=== PATIENT | female | born 1950 | race Caucasian/White ===

== ENCOUNTER 2024-12-10 09:43 | Inpatient (IN) ==
[2024-12-10] MEDS: fentaNYL 100 MCG/2 ML VIAL IV ONE (10:41)
[2024-12-10] MEDS: 0.9 % SODIUM CHLORIDE 1,000 ML IV ONE (10:41)
[2024-12-10 11:10] LABS: Basophils # (Auto) 0.01 K/mcL (0.00-0.30); Basophils % (Auto) 0.1 % (0.0-2.0); Eosinophils # (Auto) 0 K/mcL (0.00-0.70); Eosinophils % (Auto) 0 % (0.0-7.0); Hematocrit 35.4 % (34.1-44.9); Hemoglobin 12.1 g/dL (11.2-15.7); Lymphocytes # (Auto) 1.33 K/mcL (1.50-4.80); Lymphocytes % (Auto) 18.7 % (15.5-49.0); Mean Corpuscular HGB Conc 34.2 g/dL (31.0-36.0); Monocytes # (Auto) 0.49 K/mcL (0.10-0.90); Monocytes % (Auto) 6.9 % (1.0-12.0); Neutrophils % (Auto) 73.3 % (38.0-78.0); Platelet Count 192 K/mcL (140-440); RBC 4.19 M/mcL (3.59-5.38); WBC 7.1 K/mcL (4.5-11.0)
[2024-12-10 11:43] LABS: INR 1.1 (0.9-1.1); Prothrombin Time 14.9 sec (11.9-14.5)
[2024-12-10 12:01] LABS: ALT/SGPT 6 U/L (<40); AST/SGOT 10 U/L (<32); Albumin 3.2 gm/dL (3.2-5.2); Albumin/Globulin Ratio 1.5 (1.0-2.3); Alkaline Phosphatase 82 U/L (39-117); Anion Gap 11.0 (8.0-16.0); Bilirubin,Total 0.4 mg/dL (0.1-1.0); Blood Urea Nitrogen 31 mg/dL (8-23); Calcium 8.2 mg/dL (8.6-10.4); Carbon Dioxide 23 mmol/L (22-30); Chloride 101 mmol/L (96-108); Globulin 2.1 gm/dL (2.2-3.7); Glucose 102 mg/dL (70-105); Potassium 3.1 mmol/L (3.3-5.1); Sodium 135 mmol/L (133-145)
[2024-12-10] MEDS ORDERED: ACETAMINOPHEN 325 MG TABLET PO PRN (12:31)
[2024-12-10] MEDS ORDERED: SENNOSIDES 1 TABLET PO PRN (12:31)
[2024-12-10] MEDS ORDERED: POTASSIUM CHLORIDE 40 MEQ in DEXTROSE 5% IN WATER 500 ML IV PRN (12:31)
[2024-12-10] MEDS ORDERED: POTASSIUM CHLORIDE 20 MEQ TABLET PO PRN (12:31)
[2024-12-10] MEDS ORDERED: IPRATROPIUM/ALBUTEROL 3 ML AMPUL.NEB NEB PRN (12:31)
[2024-12-10] MEDS ORDERED: ONDANSETRON 4 MG/2 ML VIAL IV PRN (12:31)
[2024-12-10] MEDS ORDERED: METOCLOPRAMIDE 10 MG/2 ML VIAL IV PRN (12:31)
[2024-12-10] MEDS ORDERED: POLYETHYLENE GLYCOL 3350 17 GM PACKET PO PRN (12:31)
[2024-12-10 12:47] LABS: Bilirubin,Urine Negative (Negative); Color,Urine YELLOW; Glucose,Urine (UA) Negative (Negative); Ketones,Urine Negative (Negative); Leukocyte Esterase,Urine Negative /uL (Negative); PH,Urine 6.0 (5.0-9.0); Protein,Urine Negative (Negative); Specific Gravity,Urine 1.008 (1.000-1.035); Urobilinogen,Urine Negative
[2024-12-10] MEDS: 0.9 % SODIUM CHLORIDE 10 ML SYRINGE IV SCH (13:57)
[2024-12-10] MEDS ORDERED: MECLIZINE 25 MG TABLET PO PRN (19:34)
[2024-12-10] MEDS: PROPRANOLOL 40 MG TABLET PO SCH (20:31)
[2024-12-10] MEDS: DOCUSATE SODIUM 100 MG CAPSULE PO SCH (20:32)
[2024-12-10] MEDS: 0.9 % SODIUM CHLORIDE 1,000 ML IV SCH (23:59)
[2024-12-11 06:33] LABS: Basophils # (Auto) 0.01 K/mcL (0.00-0.30); Basophils % (Auto) 0.1 % (0.0-2.0); Eosinophils # (Auto) 0 K/mcL (0.00-0.70); Eosinophils % (Auto) 0 % (0.0-7.0); Hematocrit 36.5 % (34.1-44.9); Hemoglobin 12.1 g/dL (11.2-15.7); Lymphocytes # (Auto) 1.25 K/mcL (1.50-4.80); Lymphocytes % (Auto) 18.3 % (15.5-49.0); Mean Corpuscular HGB Conc 33.2 g/dL (31.0-36.0); Monocytes # (Auto) 0.54 K/mcL (0.10-0.90); Monocytes % (Auto) 7.9 % (1.0-12.0); Neutrophils % (Auto) 73.4 % (38.0-78.0); Platelet Count 202 K/mcL (140-440); RBC 4.21 M/mcL (3.59-5.38); WBC 6.8 K/mcL (4.5-11.0)
[2024-12-11 07:03] LABS: ALT/SGPT 6 U/L (<40); AST/SGOT 9 U/L (<32); Albumin 3.1 gm/dL (3.2-5.2); Albumin/Globulin Ratio 1.4 (1.0-2.3); Alkaline Phosphatase 85 U/L (39-117); Anion Gap 11.0 (8.0-16.0); Bilirubin,Direct 0.2 mg/dL (<0.3); Bilirubin,Total 0.4 mg/dL (0.1-1.0); Blood Urea Nitrogen 28 mg/dL (8-23); Calcium 8.2 mg/dL (8.6-10.4); Carbon Dioxide 25 mmol/L (22-30); Chloride 102 mmol/L (96-108); Globulin 2.2 gm/dL (2.2-3.7); Glucose 95 mg/dL (70-105); Phosphorous 4.4 mg/dL (2.5-4.5); Potassium 3.1 mmol/L (3.3-5.1); Sodium 138 mmol/L (133-145); Triglycerides 75 mg/dL (<150); Uric Acid 9.8 mg/dL (2.5-8.0)
[2024-12-11] MEDS: OMEPRAZOLE 20 MG CAPSULE PO SCH (07:30)
[2024-12-11] MEDS: 0.9 % SODIUM CHLORIDE 1,000 ML IV SCH (08:49)
[2024-12-11] MEDS: POTASSIUM CHLORIDE 20 MEQ TABLET PO PRN (08:49)
[2024-12-11] MEDS ORDERED: MIDAZOLAM 2 MG/2 ML VIAL ONE (12:45)
[2024-12-11] MEDS ORDERED: PROPOFOL 200 MG/20 ML VIAL IV ONE (12:45)
[2024-12-11] MEDS ORDERED: ePHEDrine 50 MG/5 ML SYRINGE (ANEST) IV ONE (12:49)
[2024-12-11] MEDS ORDERED: PHENYLephrine 1 MG/10 ML SYRINGE (ANEST) ONE (12:49)
[2024-12-11] MEDS ORDERED: DEXAMETHASONE 10 MG/ML VIAL ONE (12:49)
[2024-12-11] MEDS ORDERED: METOCLOPRAMIDE 10 MG/2 ML VIAL ONE (12:49)
[2024-12-11] MEDS ORDERED: GLYCOPYRROLATE 0.2 MG/ML VIAL IV ONE (12:49)
[2024-12-11] MEDS ORDERED: TRANEXAMIC ACID 1,000 MG/10 ML VIAL ONE (12:49)
[2024-12-11] MEDS ORDERED: ONDANSETRON 4 MG/2 ML VIAL ONE (12:49)
[2024-12-11] MEDS ORDERED: LIDOCAINE 2% PF 5 ML VIAL ONE (12:49)
[2024-12-11] MEDS ORDERED: FAMOTIDINE/PF 20 MG/2 ML VIAL IV ONE (12:49)
[2024-12-11] MEDS: ceFAZolin 2 GM in DEXTROSE 5% IN WATER 50 ML IV SCH (13:08)
[2024-12-11] MEDS ORDERED: HYDROmorphone 0.5 MG/0.5 ML SYRINGE ONE (13:42)
[2024-12-11] MEDS ORDERED: VASOPRESSIN 20 UNIT/ML VIAL ONE (14:18)
[2024-12-11] MEDS ORDERED: fentaNYL 100 MCG/2 ML VIAL IV PRN (14:19)
[2024-12-11] MEDS ORDERED: HYDROmorphone 0.5 MG/0.5 ML SYRINGE IV PRN (14:19)
[2024-12-11] MEDS ORDERED: IPRATROPIUM/ALBUTEROL 3 ML AMPUL.NEB NEB PRN (14:19)
[2024-12-11] MEDS ORDERED: BUPIVACAINE PF 0.5% 10 ML VIAL ONE (15:18)
[2024-12-11] MEDS ORDERED: METHOCARBAMOL 500 MG TABLET PO PRN (15:31)
[2024-12-11] MEDS ORDERED: BUPIVACAINE LIPOSOMAL 1.3% 10 ML VIAL IJ ONE (15:34)
[2024-12-11] MEDS: ACETAMINOPHEN 1,000 MG/100 ML BAG IV ONE (15:35)
[2024-12-11] MEDS: TRANEXAMIC ACID 1,000 MG/10 ML VIAL IV ONE (16:05)
[2024-12-11] MEDS: LACTATED RINGERS 1,000 ML IV SCH ×2 (16:30→17:43)
[2024-12-11] MEDS: 0.9 % SODIUM CHLORIDE 10 ML SYRINGE IV SCH (20:36)
[2024-12-11] MEDS: ASPIRIN 81 MG TAB.CHEW CHEWED SCH (20:36)
[2024-12-11] MEDS: ACETAMINOPHEN 500 MG TABLET PO SCH (21:30)
[2024-12-12 07:17] LABS: ALT/SGPT 7 U/L (<40); AST/SGOT 15 U/L (<32); Albumin 3.1 gm/dL (3.2-5.2); Albumin/Globulin Ratio 1.5 (1.0-2.3); Alkaline Phosphatase 80 U/L (39-117); Anion Gap 12.0 (8.0-16.0); Bilirubin,Direct < 0.2 mg/dL (0-0.3); Bilirubin,Total 0.3 mg/dL (0.1-1.0); Blood Urea Nitrogen 28 mg/dL (8-23); Calcium 8.3 mg/dL (8.6-10.4); Carbon Dioxide 22 mmol/L (22-30); Chloride 101 mmol/L (96-108); Globulin 2.1 gm/dL (2.2-3.7); Glucose 129 mg/dL (70-105); Phosphorous 3.6 mg/dL (2.5-4.5); Potassium 4.1 mmol/L (3.3-5.1); Sodium 135 mmol/L (133-145); Triglycerides 70 mg/dL (<150); Uric Acid 9.2 mg/dL (2.5-8.0)
[2024-12-12] MEDS: MAGNESIUM SULFATE 2 GM/50 ML BAG IV PRN (09:45)
[2024-12-13] MEDS: KETOROLAC 15 MG/ML VIAL IV PRN (03:23)
[2024-12-13 08:00] VITALS: TEMP 97.3; O2SAT 93
== END 2024-12-13 10:33 | disposition home or self-care (01) | DRG 522 ==
LOC: ED 09:43 → MEDSUR 12:13
PROVIDERS: ADMIT Internal Medicine; ATTEND Internal Medicine